=== PATIENT | male | born 1940 | race Caucasian/White ===

== ENCOUNTER → 2016-12-31 | Outpatient (CLI) | payer MEDICARE, BC ==
--- NOTE | 2016-12-31 15:52 | RADRPT ---
PROCEDURE: XR Knees. CLINICAL INDICATION: Bilateral knee pain. TECHNIQUE: Total of six views. Frontal, oblique, and lateral views of both knees. COMPARISON: No prior study is available for comparison. FINDINGS: There is no fracture or dislocation. There is bilateral chondrocalcinosis. There are degenerative changes of both knees with bilateral medial joint compartment narrowing and s ubarticular sclerosis. Osteophytes are noted arising from all 3 joint compartment margins bilateral ly. There is no lytic or blastic lesion. There is no radiopaque foreign body. IMPRESSION: 1. Bilateral chondrocalcinosis, likely degenerative. 2. Moderate degenerative changes of both knees. 3. No acute abnormality. RPTAT: QQ .Garrick Guerrero MD, MD Date Time Electronically viewed and signed by .Garrick Guerrero MD, MD on 12/31/2016 15:52 .R/
--- NOTE | 2017-01-02 04:41 | HKNOTE ---
DATE OF SERVICE: 12/31/2016 MAIN COMPLAINT: Pain in both knees. HISTORY OF MAIN COMPLAINT: The patient is a 76-year-old male who complains of pain in both knees wh ich has been present for about a year. There has not been any history of injury to the knees. He h as not seen any other orthopedic surgeons for his knee. His GP did order an MRI scan of his knee wh eric he brings with him. PRESENT COMPLAINTS: Neither of the knees locks or feels unstable. Both of them swell from time to time. His pain is described as being severe and is aggravated by walking, weightbearing, and stair climbing. He does not get any rest pain or night pain. He takes Advil for the pain which does not help very much. He does not have any history of back problems. He has no numbness or tingling in h is legs. On bad days he cannot walk more than 300 feet. On a good day, he can walk 2 or 3 times th at distance. Note that he used to walk 3 miles a day. He does not limp. He does not have a shoe lift. He can clip his toenails and tie his shoelaces. PREVIOUS ORTHOPEDIC OPERATIONS: None. PRIOR CORTISONE INTAKE: Yes, both knees. ALCOHOL INTAKE: None. OTHER JOINT PROBLEMS: Shoulders. BLOOD TESTS FOR ARTHRITIS: Yes (as noted, ____ results). PRIOR INJURIES TO HIPS OR KNEES: None. WORK STATUS: The patient is retired. MAJOR MEDICAL PROBLEMS: No previous major illnesses. Retinal detachment which has been repaired an d gout. PAST SURGICAL HISTORY: No previous surgeries. MEDICATIONS ALLERGIES: NONE. MEDICATIONS: Eye drops and Advil. FAMILY HISTORY: Noncontributory. SYSTEMS REVIEW: Entirely negative. HABITS: Patient nonsmoker. He takes an occasional alcoholic beverage. PHYSICAL EXAMINATION: GENERAL: The patient is a fit-looking and youthful 76-year-old male. He comes in with his . H e is not using a walking aid. His gait is normal. VITAL SIGNS: Height 5 feet 10 inches, weight 176 pounds. Blood pressure 195/85, temperature 97.9. BACK: Dynamic pain assessment reveals a pain free range of motion in flexion, extension, lateral be nding, and rotation. Inspection of the spine reveals no list. There is @@no lumbar paraspinal muscle spasm. The pelvis is level. Facet stress test is negative bilaterally. Palpation of the spine demonstrates no tenderness of the spinous processes, facet joints, sacroiliac joint, sciatic notch, or posterior thigh. NEUROLOGIC: Motor examination reveals no muscle deficit in the lower extremities. Deep tendon refle xes in the lower extremities: Right knee jerk plus, left knee jerk plus, right ankle jerk plus, lef t ankle jerk plus. Straight leg raising is negative bilaterally at 80 degrees. Lasegue and SYLVAIN foreign ts are negative. HIPS: Both hips have full range of motion without pain. RIGHT KNEE: The right knee shows varus alignment. Extension lacks 7 degrees. Active and passive f lexion is to 110 degrees. The medial and lateral collateral ligaments and cruciate ligaments are int act. Miquel test is negative. There is no tenderness, scarring, or cysts. The patella tracks normal ly. There is no tenderness on the articular surface of the patella or in the patellar groove. The Q angle is normal. There is 2+ effusion. Tender along the medial joint line. There is 3+ crepitus i n the knee, none in the patella. LEFT KNEE: The left knee shows varus alignment. Active and passive extension lacks 5 degrees. Acti ve and passive flexion lacks 25 degrees. The medial and lateral collateral ligaments and cruciate li gaments are intact. Miquel test is negative. There is no tenderness, scarring, or cysts. The patell a tracks normally. There is no tenderness on the articular surface of the patella or in the patellar groove. The Q angle is normal. There is moderate effusion. There is 6+ crepitus in the knee and n one in the patella. IMAGING: Plain x-rays of the patient's knees obtained today at the [facility] were review ed. The right knee shows severe degenerative osteoarthritis of the medial compartment of the knee. Ther e is tgin-fa-ggio contact in the medial compartment. There are osteophytes and subchondral sclerosi s. No loose bodies are noted. The lateral compartment is wider and looks much preserved compared t o the medial compartment. The patellofemoral compartment shows severe degenerative osteoarthritis w ith no marked narrowing of the patellofemoral joint. Plain x-rays of the left knee obtained today likewise show marked narrowing of the medial joint spac e and patellofemoral joint in almost a mirror image of the opposite knee. DIAGNOSES 1. Severe degenerative osteoarthritis of both knees [symptomatic.] 2. Retinal detachment. 3. Gout. MANAGEMENT: The patient is advised that sooner or later he will need to have surgery on his knees. At the present time, his left knee is worse than the right knee. We should pursue a conservative c ourse. 1. Under sterile conditions, the patient was given injection of 40 mg of Kenalog and 5 mL of 2% lid ocaine into each knee. 2. The patient is being sent for course of physical therapy. The patient will be seen again as necessary for further evaluation and treatment. Dictated By: OSEAS LERNER/ELVIN Conf#: [id number] DID#: [id number]
== END | disposition home or self-care (01) ==
LOC: HKI 14:04
DX: M17.0 Bilateral primary osteoarthritis of knee (principal); M10.9 Gout, unspecified
CPT/HCPCS: 20610; 73562; J3301